=== PATIENT | male | born 1985 | race Caucasian/White ===

== ENCOUNTER 2017-02-24 18:26 | Emergency (ER) | payer BC ==
--- NOTE | 2017-02-24 19:31 | EDM.PDOC ---
ED HPI GENERAL MEDICAL PROBLEM - General Chief Complaint: Chest Pain Stated Complaint: CHEST PAIN/TIGHTNESS Time Seen by Provider: 02/24/17 19:15 Source of Information: Reports: Patient, RN Notes Reviewed History Limitations: Reports: No Limitations - History of Present Illness INITIAL COMMENTS - FREE TEXT/NARRATIVE: The patient states that he was standing at work around 17:45 this evening, when he developed a sudden onset sharp pain to his lower sternal area. The pain lasted only 15-20 seconds, however, a couple of seconds later he felt a sharp pain to the upper aspect of his left shoulder that also lasted about 15 seconds. Since then, he has felt some soreness and tightness in his chest and shoulder. A few minutes after this event, the patient became diaphoretic and felt tightness in his neck, which lasted about 1.5 hours and has since resolved. At present, the patient is completely asymptomatic. The patient denies having had palpitations, dyspnea, or anxiety. He did not identify any modifiers. He denies having anything to eat or drink for more than an hour prior to this event, in particular, he denies having anything cold to drink. The patient called his doctor in [place], who instructed that he go to the ED. No prior similar symptoms. Chest Pain Score (Numeric/FACES): 2 - Related Data Allergies Allergy/AdvReac Type Severity Reaction Status Date / Time No Known Allergies Allergy Verified 02/24/17 18:37 Home Meds: Home Meds . [No Known Home Meds] 02/24/17 [History] Past Medical History - Past Health History Medical/Surgical History: Denies Medical/Surgical History Social & Family History - Tobacco Use Smoking Status *Q: Never Smoker - Caffeine Use Caffeine Use: Reports: Energy Drinks - Alcohol Use Alcohol Use History: Yes Alcohol Use Frequency: Socially - Recreational Drug Use Recreational Drug Use: No - Living Situation & Occupation Living situation: Reports: , with Spouse Occupation: Employed ([employer]) ED ROS GENERAL - Review of Systems Review Of Systems: See Below Constitutional: Reports: No Symptoms HEENT: Reports: No Symptoms Respiratory: Reports: No Symptoms Cardiovascular: Reports: No Symptoms Endocrine: Reports: No Symptoms GI/Abdominal: Reports: No Symptoms : Reports: No Symptoms Musculoskeletal: Reports: No Symptoms Skin: Reports: No Symptoms Neurological: Reports: No Symptoms Psychiatric: Reports: No Symptoms Hematologic/Lymphatic: Reports: No Symptoms Immunologic: Reports: No Symptoms ED EXAM, GENERAL - Physical Exam Exam: See Below Exam Limited By: No Limitations General Appearance: Alert, WD/WN, No Apparent Distress Eye Exam: Bilateral Eye: Normal Inspection Ears: Normal External Exam, Hearing Grossly Normal Ear Exam: Bilateral Ear: Auricle Normal Nose: Normal Inspection, No Blood Throat/Mouth: Normal Inspection, Normal Lips, Normal Voice, No Airway Compromise Head: Atraumatic, Normocephalic Neck: Normal Inspection, Full Range of Motion Respiratory/Chest: No Respiratory Distress, Lungs Clear, Normal Breath Sounds, No Accessory Muscle Use, Chest Non-Tender Cardiovascular: Normal Peripheral Pulses, Regular Rate, Rhythm, No Edema, No Gallop, No JVD, No Murmur, No Rub Peripheral Pulses: 4+: Radial (L), Radial (R) GI/Abdominal: Normal Bowel Sounds, Soft, Non-Tender, No Organomegaly, No Distention, No Abnormal Bruit, No Mass (Male) Exam: Deferred Rectal (Males) Exam: Deferred Back Exam: Normal Inspection, Full Range of Motion, NT Extremities: Normal Inspection, Normal Range of Motion, No Pedal Edema, Normal Capillary Refill Neurological: Alert, Oriented, Normal Cognition, No Motor/Sensory Deficits Psychiatric: Normal Affect Skin Exam: Warm, Dry, Intact, Normal Color, No Rash Lymphatic: No Adenopathy EKG INTERPRETATION EKG Date: 02/24/17 Time: 18:34 Rhythm: NSR Rate (beats/min): 68 [place]: normal P-wave: present QRS: normal ST-T: normal QT: normal Comparison: NA - no prior EKG Course - Vital Signs Last Recorded V/S: Last Vital Signs Temp 36.1 C 02/24/17 18:31 Pulse 75 02/24/17 18:31 Resp 18 02/24/17 18:31 BP 126/87 02/24/17 18:31 Pulse Ox 100 02/24/17 18:56 - Orders/Labs/Meds Orders: Active Orders 24 hr Category Date Time Status EKG 12 Lead [EKG Documentation Completion] [RC] STAT Care 02/24/17 18:41 Active Chest 1V Frontal [CR] Stat Exams 02/24/17 18:49 Taken Labs: Laboratory Tests 02/24/17 02/24/17 02/24/17 Range/Units 18:45 18:45 18:45 WBC 6.32 (4.23-9.07) K/mm3 RBC 5.43 (4.63-6.08) M/mm3 Hgb 16.5 (13.7-17.5) gm/L Hct 45.3 (40.1-51.0) % MCV 83.4 (79.0-92.2) fl MCH 30.4 (25.7-32.2) pg MCHC 36.4 H (32.2-35.5) g/dl RDW Std Deviation 38.4 (35.1-43.9) fL Plt Count 296 (163-337) K/mm3 MPV 8.1 L (9.4-12.3) fl Neut % (Auto) 52.6 (34.0-67.9) % Lymph % (Auto) 38.1 (21.8-53.1) % [place] % (Auto) 6.8 (5.3-12.2) % Eos % (Auto) 1.7 (0.8-7.0) Baso % (Auto) 0.6 (0.1-1.2) % Neut # (Auto) 3.32 (1.78-5.38) K/mm3 Lymph # (Auto) 2.41 (1.32-3.57) K/mm3 [place] # (Auto) 0.43 (0.30-0.82) K/mm3 Eos # (Auto) 0.11 (0.04-0.54) K/mm3 Baso # (Auto) 0.04 (0.01-0.08) K/mm3 PT 10.6 (8.0-13.0) SECONDS INR 0.97 APTT 27 (22-36) SECONDS D-Dimer, Quantitative < 0.19 L (0.19-0.59) mg/L Sodium 140 (136-145) mEq/L Potassium 3.7 (3.5-5.1) mEq/L Chloride 103 (98-107) mEq/L Carbon Dioxide 29 (21-32) mEq/L Anion Gap 11.7 (5-15) BUN 9 (7-18) mg/dL Creatinine 1.0 (0.7-1.3) mg/dL Est Cr Clr Drug Dosing 119.85 mL/min Estimated GFR (MDRD) > 60 (>60) mL/min BUN/Creatinine Ratio 9.0 L (14-18) Glucose 101 (74-106) mg/dL Calcium 9.1 (8.5-10.1) mg/dL Total Bilirubin 0.6 (0.2-1.0) mg/dL AST 17 (15-37) U/L ALT 38 (16-63) U/L Alkaline Phosphatase 78 (46-116) U/L Troponin I < 0.017 (0.00-0.056) ng/mL Total Protein 8.0 (6.4-8.2) g/dl Albumin 4.4 (3.4-5.0) g/dl Globulin 3.6 gm/dL Albumin/Globulin Ratio 1.2 (1-2) - Radiology Interpretation Free Text/Narrative:: Portable chest radiograph appears to be grossly normal. Cardiac silhouette is within normal limits. No pulmonary vascular congestion. No pleural effusions. No focal infiltrate. No pneumothorax. Formal read per the Radiologist pending. - Re-Assessments/Exams Free Text/Narrative Re-Assessment/Exam: 02/24/17 21:19 Test results discussed with the patient. Today's workup is entirely unremarkable, and does not explain the cause of the patient's pain. Based on his history, I suspect a gastroenterologic etiology, although that cannot be proven. The patient states that he will be returning to his home in [place] in a couple of days, and can followup with his PCP then. Departure - Departure Time of Disposition: 21:20 Disposition: Home, Self-Care 01 Condition: good Clinical Impression: Chest pain of uncertain etiology - Discharge Information Forms: ED Department Discharge Additional Instructions: You were seen in the emergency room for sudden onset severe pain in the middle of your chest that lasted 15-20 seconds, then pain on the top of your left shoulder for another 15 seconds. Workup in the ER included blood work, an ECG, and a chest x-ray. Your entire workup was unremarkable. You are not anemic. You did not have a heart attack. You do not have pneumonia. You do not have a collapsed lung. You do not have a blood clot in your lungs. The cause of your symptoms is not known, but we suspect may be related to your stomach or esophagus. Followup with your physician after you return home to [place]. If any other problems before then, please do not hesitate to return to the ER. - My Orders Last 24 Hours: My Active Orders 02/24/17 18:41 EKG 12 Lead [EKG Documentation Completion] [RC] STAT - Assessment/Plan Last 24 Hours: My Active Orders 02/24/17 18:41 EKG 12 Lead [EKG Documentation Completion] [RC] STAT
[2017-02-24 21:42] VITALS: BP 133/87
--- NOTE | 2017-02-25 06:22 | CR ---
Chest: Portable view of the chest was obtained. Comparison: No previous chest x-ray. Heart size and mediastinum are normal. Lungs are clear. Bony structures are grossly intact. Impression: 1. Nothing acute is identified on portable chest x-ray. Diagnostic code #1
== END 2017-02-24 21:30 | disposition home or self-care (01) ==
LOC: JD.ED 18:26
DX: R07.89 Other chest pain (principal)
CPT/HCPCS: 36415; 71010; 71010-26; 80053; 84484; 85025; 85379; 85610; 85730; 93005; 99284; 99285-25